=== PATIENT | female | born 1990 | race African-American/Black ===

== ENCOUNTER 2019-01-26 15:33 | Emergency (ER) | payer MEDICAID ==
[~2019-01-26] VITALS: Ht 165.1 cm; Wt 90.7 kg
[2019-01-26 15:49] VITALS: BP 119/70
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
== END 2019-01-26 17:00 | disposition left against medical advice (07) ==
LOC: EMR 16:30
DX: S02.40DA Maxillary fracture, left side, initial encounter for closed fracture (principal); F17.200 Nicotine dependence, unspecified, uncomplicated; S00.93XA Contusion of unspecified part of head, initial encounter; S00.211A Abrasion of right eyelid and periocular area, initial encounter; Y04.8XXA Assault by other bodily force, initial encounter
CPT/HCPCS: 70450; 70486; 99284

== ENCOUNTER 2020-07-01 19:30 | Emergency (ER) | payer MEDICAID, OTHER ==
[~2020-07-01] VITALS: Ht 170.2 cm; Wt 63.5 kg
[2020-07-01 19:29] VITALS: BP 150/88
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
== END 2020-07-01 19:56 | disposition home or self-care (01) ==
LOC: EDBD 19:30 → EMR 19:38
DX: M25.571 Pain in right ankle and joints of right foot (principal)
CPT/HCPCS: 99281

== ENCOUNTER 2020-10-19 14:20 | Emergency (ER) | payer SELFPAY ==
[~2020-10-19] VITALS: Ht 165.1 cm; Wt 53.5 kg
[2020-10-19 14:24] VITALS: BP 113/67
--- NOTE | 2020-10-19 15:43 | Emergency Room Report ---
History of Present Illness General Chief Complaint: Abdominal Pain Source: Patient Present Illness HPI Patient left prior to being seen. I had no interaction with this patient. Allergies: Coded Allergies: No Known Allergies (Unverified , 01/26/19) COVID-19 Screening Contact w/high risk pt: No Experienced COVID-19 symptoms?: No COVID-19 Testing performed COMPENSATOR: Yes COVID-19 Screening: Negative COVID-19 COVID-19 Testing Source: ASSOCIATE SCIENTIST Patient History Now: No Nursing Documentation-[facility] Past Medical History: No Stated History Physical Exam Vital Signs Date Time Temp Pulse Resp B/P (MAP) Pulse Ox O2 Delivery O2 Flow Rate FiO2 10/19/20 14:24 98.6 99 16 113/67 (82) 99 Room Air Medical Decision Making ER Course Patient left prior to being seen by me. I had no interaction with this patient. Last Vital Signs Date Time Temp Pulse Resp B/P (MAP) Pulse Ox O2 Delivery O2 Flow Rate FiO2 10/19/20 14:24 98.6 99 16 113/67 (82) 99 Room Air Disposition: LEFT W/OUT BEING SEEN Condition: Unknown Scripts No Active Prescriptions or Reported Meds Tim Bucio MD Oct 19, 2020 15:43
== END 2020-10-19 15:00 | disposition left against medical advice (07) ==
LOC: EMR 14:55
DX: Z53.21 Procedure and treatment not carried out due to patient leaving prior to being seen by health care provider (principal)